=== PATIENT | female | born 1950 | race Caucasian/White ===

== ENCOUNTER 2020-02-04 13:07 | Outpatient (CLI) | payer BC, MEDICARE ==
--- NOTE | 2020-02-04 13:58 | RAD ---
Three-view cervical spine INDICATION: Cervical radiculopathy COMPARISON: Prior cervical spine exam dated October 04, 2018 FINDINGS: The ACDF involving C4-C7 is stable appearing. There is no evidence of hardware loosening or failure. Lateral masses are symmetric. Spinal alignment is within normal limits. Lung apices are clear. IMPRESSION: Stable postoperative cervical spine
== END 2020-02-04 13:08 | disposition home or self-care (01) ==
LOC: TBSIIMAG 13:07
PROVIDERS: ATTEND Surgery
DX: M50.10 Cervical disc disorder with radiculopathy, unspecified cervical region (principal); M48.02 Spinal stenosis, cervical region; Z98.890 Other specified postprocedural states
CPT/HCPCS: 72040